=== PATIENT | male | born 1970 | race Two or more races ===

== ENCOUNTER 2024-10-17 23:52 | Emergency (ER) | payer MEDICAID, OTHER ==
[~2024-10-17] VITALS: Ht 177.8 cm; Wt 72.7 kg
[2024-10-18 00:44] LABS: Urine Bacteria None Seen /hpf (None Seen)
--- NOTE | 2024-10-18 00:49 | DVH ---
Date: 10/18/2024 12:32 AM Examination: XY KUB ABDOMEN SINGLE VIEW History: Abdominal pain Comparison: None TECHNIQUE: Frontal views of the abdomen was obtained. FINDINGS: Lung bases are clear. Scattered gas throughout nondilated small and large bowel Phleboliths project over the pelvis. Osseous structures are grossly intact. IMPRESSION: No evidence of bowel obstruction.
[2024-10-18 00:51] LABS: Urine Amorphous Crystal FEW /hpf (None Seen); Urine Blood 1+ /uL (Negative); Urine Clarity Turbid (Clear); Urine Mucus FEW (None Seen); Urine Protein, UAD TRACE (Negative); Urine Squamous Epithelial Cell None Seen /hpf (<5); Urine Urobilinogen Normal (Negative); Urine WBC 1 /HPF (0-3); Urine pH 7.5 (5.0-9.0)
[2024-10-18 01:04] LABS: COVID19 ANTIGEN SOFIA FIA NEGATIVE (NEGATIVE); Rapid Influenza A Negative (Negative); Rapid Influenza B Negative (Negative)
[2024-10-18 01:06] LABS: Urine Color DARK YELLOW (Yellow)
[2024-10-18] MEDS: DICYCLOMINE HCL (10MG/ML) 2 ML AMPULE IM ONE (01:37)
[2024-10-18] MEDS: ONDANSETRON ODT 4 MG TAB PO ONE (01:37)
[2024-10-18] MEDS: cloNIDine HCL 0.1 MG TAB PO ONE (01:37)
[2024-10-18 01:42] VITALS: TEMP 97.9; O2SAT 98
[2024-10-18] MEDS ORDERED: ZOFR4T PO (02:46)
[2024-10-18] MEDS ORDERED: DICY10CA PO (02:46)
[2024-10-18] MEDS ORDERED: CLON0.2T PO (02:46)
--- NOTE | 2024-10-18 02:46 | ED.PDOC ---
GI ASSESSMENT HPI Comments This patient is a 54-year-old male who arrives the ED today for evaluation of mid abdominal pain that began yesterday and has continued into today. Patient states he has a fullness feeling as though he needs to have a bowel movement. Patient denies any history of intra-abdominal concerns. Patient denies any fever or vomiting. States intermittent nausea. Patient was hypertensive at arrival. Chief Complaint: Abdominal Pain Time Seen by MD: 23:56 Reviewed Notes: Nurses Notes Allergies: Coded Allergies: NO KNOWN ALLERGIES (Unverified , 10/18/24) Information Source: Patient Mode of Arrival: Ambulatory Timing: Days Duration: Since onset Prehospital treatment: None Quality: Aching, Cramping Vomitus: None Severity: Moderate Recent: None Recent Hx of: None Pain Location: Diffuse, Epigastric Modifying Factors: Nothing Associated sign and symptoms: Nausea, Abdominal Pain Past Medical History PAST MEDICAL HISTORY: Denies Surgical History: Denies all surgeries Family History Family History: Reviewed,noncontributory to illness, No family hx of Cancer, No family hx of DM, No family hx of Heart taan, No family hx of HTN, No family hx ofKidney tana, No family hx of Liver tana, No family hx of Lung tana, No family hx of Stroke Social History Smoker: Non-Smoker Alcohol: Denies ETOH Use Drugs: Denies Drug Use Lives In: Home Constitutional: denies: chills, diaphoresis, fatigue, fever, malaise, sweats, weakness, others EENTM: denies: blurred vision, double vision, ear bleeding, ear discharge, ear drainage, ear pain, ear ringing, eye pain, eye redness, hearing loss, mouth pain, mouth swelling, nasal discharge, nose bleeding, nose congestion, nose pain, photophobia, tearing, throat pain, throat swelling, voice changes, others Respiratory: denies: cough, hemoptysis, orthopnea, SOB at rest, shortness of breath, SOB with excertion, stridor, wheezing, others Cardiovascular: denies: chest pain, dizzy spells, diaphoresis, Dyspnea on exertion, edema, irregular heart beat, left arm pain, lightheadedness, palpitations, PND, syncope, others Gastrointestinal: reports: abdominal pain, nausea; denies: abdomen distended, blood streaked bowels, constipated, diarrhea, dysphagia, difficulty swallowing, hematemesis, melena, poor appetite, poor fluid intake, rectal bleeding, rectal pain, vomiting, others Genitourinary: denies: burning, dysuria, flank pain, frequency, hematuria, incontinence, penile discharge, penile sore, pain, testicle pain, testicle swelling, urgency, others Neurological: denies: dizziness, fainting, headache, left sided numbness, left sided weakness, numbness, paresthesia, pre-existing deficit, right sided numbness, right sided weakness, seizure, speech problems, tingling, tremors, weakness, others Musculoskeletal: denies: back pain, gout, joint pain, joint swelling, muscle pain, muscle stiffness, neck pain, others Integumetry: denies: bruises, change in color, change in hair/nails, dryness, laceration, lesions, lumps, rash, wounds, others Allergic/Immunocompromised: denies: Difficulty Healing, Frequent Infections, Hives, Itching, others Hematologic/Lymphatic: denies: anemia, blood clots, easy bleeding, easy bruising, swollen glands, others Endocrine: denies: excessive hunger, excessive sweating, excessive thirst, excessive urination, flushing, intolerance to cold, intolerance to heat, unexplained weight gain, unexplained weight loss, others Psychiatric: denies: anxiety, bipolar disorder, depression, hopeless, panic disorder, schizophrenia, sleepless, suicidal, others Physical Exam General Appearance: Moderate Distress (Lndy-bl-vfrhtvyt distress due to abdominal pain concerns.), Normal HEENT: Normal ENT Inspection, Pharynx Normal, TMs Normal Neck: Full Range of Motion, Non-Tender, Normal, Normal Inspection Respiratory: Chest Non-Tender, Lungs Clear, No Accessory Muscle Use, No Respiratory Distress, Normal Breath Sounds Cardiovascular: No Edema, No JVD, No Murmur, No Gallop, Normal Peripheral Pulses, Regular Rate/Rhythm Breast Exam: Deferred Gastrointestinal: Other (Diffuse periumbilical tenderness to palpation. No pulsatile masses. No signs of trauma. Abdomen was reasonably soft.) Genitalia: Deferred Pelvic: Deferred Rectal: Deferred Extremities: No calf tenderness, Normal capillary refill, Normal inspection, Normal range of motion, Non-tender, No pedal edema Neurologic: Alert, supervisor lead burning II-XII nml as Tested, No Motor Deficits, Normal Affect, Normal Mood, No Sensory Deficits Cerebellar Function: Normal Reflexes: Normal Skin: Dry, Normal Color, Warm Lymphatic: No Adenopathy Was a procedure done? Was a procedure done?: No GI differential Dx Differential Diagnosis: Appendicitis, Cholangitis, Constipation, Gastritis/PUD, Gastroenteritis, Pancreatitis X-Ray, Labs, Meds, VS Vital Signs Date Time Temp Pulse Resp B/P (MAP) Pulse Ox O2 Delivery O2 Flow Rate FiO2 10/18/24 01:42 97.9 60 18 169/113 (131) 98 97.9 10/18/24 01:42 60 18 98 Room Air 10/18/24 01:37 169/113 10/18/24 00:15 97.7 64 18 164/106 (125) 97 Lab Test 10/18/24 00:17 10/18/24 00:15 Range/Units Urine Color Dark yellow Yellow Urine Clarity Turbid H Clear Urine pH 7.5 5.0-9.0 Urine Specific [place] 1.020 1.001-1.035 Urine Protein Trace H Negative Urine Ketones 1+ H Negative Urine Blood 1+ H Negative /uL Urine Nitrite Negative Negative Urine Bilirubin Negative Negative Urine Urobilinogen Normal Negative mg/dL Urine Leukocyte Esterase Negative Negative /uL Urine RBC 13 0 - 3 /hpf Urine Microscopic WBC 1 0-3 /HPF Urine Squamous Epithelial Cells None seen <5 /hpf Urine Amorphous Crystals Few None Seen /hpf Urine Bacteria None seen None Seen /hpf Urine Mucus Few None Seen Urine Glucose Normal Normal mg/dL Influenza Type A Antigen Negative Negative Influenza Type B Antigen Negative Negative SARS-CoV-2 Antigen (Rapid) Negative NEGATIVE Current Medications Medications (Trade) Dose Ordered Sig/Kirk Route Start Time Stop Time Status Last Admin Dicyclomine HCl (Bentyl Injection) 20 mg ONCE ONCE IM 10/18/24 00:15 10/18/24 00:16 DC 10/18/24 01:37 Ondansetron HCl (Zofran Po) 4 mg ONCE ONCE PO 10/18/24 00:15 10/18/24 00:16 DC 10/18/24 01:37 Clonidine HCl (Catapres Tablet) 0.2 mg ONCE ONCE PO 10/18/24 01:30 10/18/24 01:31 DC 10/18/24 01:37 X-Ray, Labs, Meds, VS Comment All studies performed the ED were evaluated by me personally. CT studies were pending at time of this note. KUB of abdomen was unremarkable for any small bowel obstruction or concerning fecal burden. Urinalysis revealed a red blood cell count and therefore, CT was ordered to assess for kidney stone concerns[facility]. Toro for review of CT results when returned. Once evaluated, he will respond accordingly. Time of 1ST Reevaluation: 02:39 Reevaluation 1ST: Improved Consultation: PCP Patient Education/Counseling: Diagnosis, Treatment Family Education/Counseling: Diagnosis, Treatment Departure 1 Departure Time of Disposition: 02:43 Impression: Primary Impression: Abdominal pain Additional Impression: Hypertension Disposition: 30 STILL A PATIENT Condition: Fair Additional Instructions: Advised patient utilize medication as needed for symptomatic relief. Patient has been advised to acquire a blood pressure cuff and due to readings a day for 30 days. Patient should discuss the results of those readings with his primary care provider for possible medication management of hypertension. e-Prescriptions Ondansetron Odt 4MG Tab (ZOFRAN PO) 4 Mg Tb 4 MG PO Q6HP PRN, #20 TAB ODT TAB-DISSOLVE IN MOUTH, THEN SWALLOW Prov: TISH LIVE PAC 10/18/24 Dicyclomine Hcl (BENTYL CAPSULE) 10 Mg Cp 1 CAP PO Q6HPRN, #20 CAP 0 Refills Prov: TISH LIVE 10/18/24 Clonidine Hydrochloride (Clonidine Hcl) 0.2 Mg Tab 1 TAB PO BIDP PRN, #10 TAB 0 Refills To be used if systolic pressures above 160 or diastolic pressures above 90. Prov: TISH LIVE 10/18/24 Discharged With: Self, Friend Critical Care Note Critical Care Time?: No Stability Stability form required: No Heart Score Heart Score: Heart Score Response (Comments) Value History Slightly Suspicious 0 EKG Repolarization Disturb 1 Age 45-64 1 Risk Factors No known risk factors 0 Troponin N/A 0 Total 2 TISH LIVE PAC Oct 18, 2024 02:46
[2024-10-18] MEDS: HYDROcodone-ACET 10/325MG TAB PO ONE (03:03)
[2024-10-18 04:12] VITALS: BP 133/65; PULSE 58; RESP 18
--- NOTE | 2024-10-18 04:46 | DVH ---
Exam: CT CT AB PEL WO CON-NO ORAL OR IV History: Diffuse abdominal pain Comparison Study: None available at time of dictation. Technique: Multidetector spiral CT of the abdomen and pelvis was performed from lung bases to pubic s ymphysis. Imaging was performed without intravenous contrast. Coronal and sagittal multiplanar refor mats were obtained from the axial data set by the technologist. Radiation Dose : 1. Abdomen/Pelvis: CTDIvol 5.07 mGy, DLP 27.4 mGy*cm. Findings: Evaluation of vasculature and solid organs is limited due to lack of intravenous contrast use. Lung Bases: Lung bases are clear. Visualized portions of the heart and pericardium are unremarkable. Liver: The liver is normal in size. No focal lesions. Gallbladder and Biliary Tree: The gallbladder is unremarkable. No intrahepatic or extrahepatic bilia ry ductal dilatation. Spleen: Unremarkable Pancreas: The pancreas is grossly unremarkable. Adrenal Glands: Unremarkable Kidneys: Kidneys are unremarkable without calculi or hydronephrosis. GI tract: The stomach is grossly normal in appearance. No evidence of small bowel wall thickening or abnormal dilatation to suggest bowel obstruction. The colon is unremarkable. The appendix is visual ized and is normal. Peritoneum/mesentery/retroperitoneum. No evidence of free intraperitoneal air. No ascites. No evidenc e of suspicious lymphadenopathy. Abdominal Wall: Unremarkable. Vasculature: The visualized abdominal aorta is normal in size and caliber. Evaluation of abdominal a nd pelvic vessels is limited due to lack of intravenous contrast. Urinary Bladder: Grossly unremarkable for degree of distention. Pelvic Organs: Unremarkable Musculoskeletal: No aggressive focal bony lesions, acute fractures or dislocation. IMPRESSION: 1. No acute abdominal or pelvic findings.
--- NOTE | 2024-10-18 05:02 | ED.PDOC ---
Departure 1 Departure Time of Disposition: 05:00 (Patient's workup is benign other than hematuria. We will discharge patient home with outpatient follow up) Impression: Primary Impression: Abdominal pain Qualified Codes: R10.84 - Generalized abdominal pain Additional Impressions: Hypertension Qualified Codes: I10 - Essential (primary) hypertension Hematuria Qualified Codes: R31.9 - Hematuria, unspecified Disposition: 30 STILL A PATIENT Condition: Stable Referrals: JIM MORENO MD Additional Instructions: Advised patient utilize medication as needed for symptomatic relief. Patient has been advised to acquire a blood pressure cuff and due to readings a day for 30 days. Patient should discuss the results of those readings with his primary care provider for possible medication management of hypertension. Your blood in the urine. You were referred to Urology. Please call for an appointment. e-Prescriptions Ondansetron Odt 4MG Tab (ZOFRAN PO) 4 Mg Tb 4 MG PO Q6HP PRN, #20 TAB ODT TAB-DISSOLVE IN MOUTH, THEN SWALLOW Prov: TISH LIVE PAC 10/18/24 Dicyclomine Hcl (BENTYL CAPSULE) 10 Mg Cp 1 CAP PO Q6HPRN, #20 CAP 0 Refills Prov: TISH LIVE PAC 10/18/24 Clonidine Hydrochloride (Clonidine Hcl) 0.2 Mg Tab 1 TAB PO BIDP PRN, #10 TAB 0 Refills To be used if systolic pressures above 160 or diastolic pressures above 90. Prov: TISH LIVE PAC 10/18/24 Discharged With: Self, Friend CHANELL MOLINA MD Oct 18, 2024 05:01
== END 2024-10-18 05:37 | disposition home or self-care (01) ==
LOC: ER 10-18 00:03
DX: R10.84 Generalized abdominal pain (principal); I10 Essential (primary) hypertension; Z20.822 Contact with and (suspected) exposure to COVID-19
CPT/HCPCS: 36415; 74018; 74176; 81001; 87426; 87804; 96372; 99285; J0500; Q0162